=== PATIENT | female | born 1955 | race Caucasian/White ===

== ENCOUNTER 2024-12-08 08:45 | Outpatient (RCR) | payer MEDICARE, BC, SELFPAY | END 2024-12-08 12:20 | disposition home or self-care (01) | PROVIDERS: PCP Family Medicine; Visit Provider Family Medicine | DX: M54.16 Radiculopathy, lumbar region (principal); R29.898 Other symptoms and signs involving the musculoskeletal system; M40.15 Other secondary kyphosis, thoracolumbar region; M19.072 Primary osteoarthritis, left ankle and foot; M17.12 Unilateral primary osteoarthritis, left knee; G89.29 Other chronic pain; M25.552 Pain in left hip; Z51.89 Encounter for other specified aftercare | CPT/HCPCS: 97110; 97140; 97162 ==